=== PATIENT | male | born 1940 | race Caucasian/White ===

== ENCOUNTER 2017-09-22 23:19 | Observation (INO) | payer BC ==
[~2017-09-22] VITALS: Ht 170.2 cm; Wt 73.8 kg
[2017-09-22 23:40] LABS: MCH 30.7 PG (29.0-34.0); MCHC 33.8 G/DL (30.0-36.0); MCV 90.9 FL (86-99); MEAN PLAT.VOLUME 9.3 uM^3 (9.0-12.4); PLATELET COUNT 246 K/uL (156-360); RBC DIS.WIDTH-CV 12.5 % (11.8-14.6); RBC DIS.WIDTH-SD 41.5 % (39-53); RED BLOOD COUNT 4.95 M/uL (4.00-5.50); WHITE BLOOD COUNT 11.7 K/uL (4.1-10.2)
[2017-09-22 23:42] LABS: PROTHROMBIN TIME 11.5 SEC (10.2-12.9)
[2017-09-22 23:45] LABS: PTT 25.6 SEC (25-37)
[2017-09-22 23:46] LABS: AMYLASE 66 IU/L (1-118); CHLORIDE 99 mEq/L (99-109); POTASSIUM 4.4 mEq/L (3.7-5.4); SODIUM 132 mEq/L (136-147)
[2017-09-22 23:48] LABS: GLUCOSE 188 mg/dL (70-99)
[2017-09-22 23:49] LABS: ANION GAP 10 MEQ/L (2-14)
[2017-09-22 23:50] LABS: TOTAL BILIRUBIN 0.7 mg/dL (0.0-1.0)
[2017-09-22 23:51] LABS: ALKALINE PHOSPHATASE 90 IU/L (3-129)
[2017-09-22 23:53] LABS: UREA NITROGEN (BUN) 13 mg/dL (9-23)
[2017-09-22 23:55] LABS: LIPASE 13 U/L (1.0-51.0)
[2017-09-22 23:57] LABS: GFR ESTIMATE (CALCULATED) 45 mL/min/ (58.99-99999)
[2017-09-23 00:01] LABS: TROP-I INTERPRETATION NEGATIVE; TROPONIN-I < 0.01 ng/mL (0.0-0.30)
[2017-09-23] MEDS ORDERED: CHOLESTEROL MED PO (00:55)
[2017-09-23] MEDS ORDERED: BLOOD PRESSURE MED PO (00:56)
[2017-09-23] MEDS ORDERED: [UNRECOGNIZED DRUG - REMARK] PO (00:56)
[2017-09-23] MEDS ORDERED: PAIN MED PO (00:57)
[2017-09-23 01:47] VITALS: BP 128/68
[2017-09-23 01:52] LABS: TROP-I INTERPRETATION NEGATIVE; TROPONIN-I < 0.01 ng/mL (0.0-0.30)
== END 2017-09-23 01:47 | disposition left against medical advice (07) ==
LOC: EDBD 23:19 → EME 23:19 → EDOF 09-23 00:56 → ENRESERV 09-23 01:02 → CANRESERV 09-23 01:13 → EDOF 09-23 01:47
PROVIDERS: Emergency Medicine
DX: R55 Syncope and collapse (principal); J44.9 Chronic obstructive pulmonary disease, unspecified; I20.9 Angina pectoris, unspecified; F17.210 Nicotine dependence, cigarettes, uncomplicated; I10 Essential (primary) hypertension; E78.5 Hyperlipidemia, unspecified; G89.29 Other chronic pain; M79.605 Pain in left leg; M79.604 Pain in right leg
CPT/HCPCS: 71010; 80053; 82150; 83690; 83880; 84484; 85027; 85610; 85730; 93005; 94640; G0378; J7030

== ENCOUNTER 2018-02-02 22:41 | Observation (INO) | payer BC ==
[~2018-02-02] VITALS: Ht 172.7 cm; Wt 72.9 kg
[~2018-02-02 22:41] MED LIST: BLOOD PRESSURE MED PO; CHOLESTEROL MED PO; PAIN MED PO; [UNRECOGNIZED DRUG - REMARK] PO
[2018-02-02 23:21] LABS: HEMATOCRIT 41.8 % (38.0-50.0); MCH 29.5 PG (29.0-34.0); MCHC 33.5 G/DL (30.0-36.0); MCV 88.2 FL (86-99); PLATELET COUNT 173 K/uL (156-360); RBC DIS.WIDTH-CV 12.8 % (11.8-14.6); RBC DIS.WIDTH-SD 41.4 % (39-53); RED BLOOD COUNT 4.74 M/uL (4.00-5.50); WHITE BLOOD COUNT 9.6 K/uL (4.1-10.2)
[2018-02-02 23:32] LABS: ALBUMIN 3.6 g/dL (3.2-4.8); CHLORIDE 100 mEq/L (99-109); SODIUM 133 mEq/L (136-147)
[2018-02-02 23:34] LABS: GLUCOSE 147 mg/dL (70-99); PTT 26.2 SEC (25-37)
[2018-02-02 23:36] LABS: TOTAL BILIRUBIN 0.6 mg/dL (0.0-1.0)
[2018-02-02 23:38] LABS: ALKALINE PHOSPHATASE 86 IU/L (3-129); CREATININE 1.2 mg/dL (0.6-1.3); GFR ESTIMATE (CALCULATED) > 59 mL/min/ (58.99-99999)
[2018-02-02 23:39] LABS: UREA NITROGEN (BUN) 13 mg/dL (9-23)
[2018-02-02 23:40] LABS: AST (GOT) 11 IU/L (2-34)
[2018-02-02 23:41] LABS: ALT (GPT) 7 IU/L (3-49); LIPASE 15 U/L (1.0-51.0)
[2018-02-02 23:42] LABS: TROP-I INTERPRETATION NEGATIVE; TROPONIN-I 0.02 ng/mL (0.0-0.30)
[2018-02-03] MEDS ORDERED: VENTOLIN HFA18 GM IH (01:27)
[2018-02-03] MEDS ORDERED: LISINOPRIL20 MG PO ×2 (01:27→11:51)
[2018-02-03] MEDS ORDERED: GABAPENTIN800 MG PO (01:28)
[2018-02-03] MEDS ORDERED: NITROGLYCERIN0.4 MG SL (01:29)
[2018-02-03] MEDS ORDERED: IMDUR30 MG PO (01:30)
[2018-02-03] MEDS ORDERED: SPIRIVA18 MCG IH (01:32)
[2018-02-03] MEDS ORDERED: VITAMIN PO (01:33)
[2018-02-03] MEDS ORDERED: B-COMPLEX-VITA1 EACH PO (01:34)
[2018-02-03 04:16] LABS: HDL CHOLESTEROL 43 MG/DL (Desirable>=40); LDL CHOLESTEROL 128 mg/dL (Desirable<100); NON-HDL CHOLESTEROL 143 mg/dL (Desirable<160); TOTAL CHOLESTEROL 186 mg/dL (Desirable<200); TRIGLYCERIDES 75 MG/DL (Normal: <150)
[2018-02-03 04:45] VITALS: BP 140/64
[2018-02-03 06:28] LABS: TROP-I INTERPRETATION NEGATIVE; TROPONIN-I 0.01 ng/mL (0.0-0.30)
[2018-02-03 07:50] VITALS: BP 148/70
[2018-02-03 08:00] VITALS: BP 133/67
[2018-02-03 08:50] VITALS: BP 127/63
[2018-02-03 10:54] LABS: HEMOGLOBIN A1c (GLYCOHEMOGLOB) 5.6 % (Below 5.7)
[2018-02-03 11:21] LABS: TROP-I INTERPRETATION NEGATIVE; TROPONIN-I < 0.01 ng/mL (0.0-0.30)
[2018-02-03 11:27] VITALS: BP 129/66
[2018-02-03] MEDS ORDERED: ATORVASTATIN CA10 MG PO (11:52)
[2018-02-03] MEDS ORDERED: ASPIR-LOW81 MG PO (11:52)
== END 2018-02-03 13:57 | disposition home or self-care (01) ==
LOC: EME → EDBD 22:41 → EDOF 02-03 02:54 → ENRESERV 02-03 02:56 → 4SOUTH 02-03 04:41
PROVIDERS: Emergency Medicine; Hospitalist
DX: R55 Syncope and collapse (principal); R60.0 Localized edema; I65.23 Occlusion and stenosis of bilateral carotid arteries; J44.9 Chronic obstructive pulmonary disease, unspecified; E87.1 Hypo-osmolality and hyponatremia; I10 Essential (primary) hypertension; I25.2 Old myocardial infarction; Z86.73 Personal history of transient ischemic attack (TIA), and cerebral infarction without residual deficits; F17.200 Nicotine dependence, unspecified, uncomplicated; E78.5 Hyperlipidemia, unspecified; G89.29 Other chronic pain; E86.1 Hypovolemia
CPT/HCPCS: 70450; 70496; 70498; 70551; 71045; 80053; 80061; 81003; 83036; 83690; 84484; 85027; 85610; 85730; 93005; 93970; 99202; 99281; 99285; G0378; J1650; J7030